=== PATIENT | male | born 1985 | race Caucasian/White ===

== ENCOUNTER 2019-06-13 16:03 | Emergency (ER) | payer SELFPAY ==
--- NOTE | 2019-06-13 16:32 | PHYS DOC ---
Past History Past Medical History: Seizure, Other Past Surgical History: No Surgical History Alcohol Use: Heavy Drug Use: None Adult General Chief Complaint Chief Complaint: ALTERED MENTAL STATUS HPI HPI Patient is a 34-year-old male brought in by EMS due to altered mental status. 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 Patient admits to drinking but will not state how much. Patient has a history of seizure disorder and is on Depakote and ZONDESAMIDE for seizures. History is limited from the patient due to his decreased mental status. EMS reports his blood sugar was in the 100s. Review of Systems Review of Systems Unable to obtain from patient due to altered mental status All other systems were reviewed and found to be within normal limits, except as documented in this note. Allergies Allergies Allergies Coded Allergies Type Severity Reaction Last Updated Verified No Known Drug Allergies 06/13/19 No Physical Exam Physical Exam Constitutional: Well developed, well nourished, no acute distress, non-toxic appearance. [] HENT: Normocephalic, atraumatic, bilateral external ears normal, oropharynx moist, no oral exudates, nose normal. [] Eyes: PERRLA, EOMI, conjunctiva normal, no discharge. [] Neck: Normal range of motion, no tenderness, supple, no stridor. [] Cardiovascular:Heart rate regular rhythm, no murmur [] Lungs & Thorax: Bilateral breath sounds clear to auscultation [] Abdomen: Bowel sounds normal, soft, no tenderness, no masses, no pulsatile masses. [] Skin: Warm, dry, no erythema, no rash. [] Back: No tenderness, no CVA tenderness. [] Extremities: No tenderness, no cyanosis, no clubbing, ROM intact, no edema. [] Neurologic: GCS12 E3 V4 M5, moves all 4 extremities, somnolent, no focal deficits noted. [] Psychologic: Somnolent[] Current Patient Data Vital Signs Vital Signs Date Time Temp Pulse Resp B/P (MAP) Pulse Ox O2 Delivery O2 Flow Rate FiO2 06/13/19 16:07 98.3 98 20 96 EKG EKG EKG shows a sinus rhythm at 70 bpm, normal axis, QTC of 426 ms, no ST elevation. Interpreted by me at 1642.[] Radiology/Procedures Radiology/Procedures PROCEDURE: PORTABLE CHEST 1V Single AP view of the chest. Comparison: None. Indication: Altered mental status Findings: The heart is not enlarged. There is no pneumothorax or effusion. No air space or interstitial disease. Impression: 1. No acute cardiopulmonary process. PROCEDURE: CT HEAD WO CONTRAST CT HEAD WO CONTRAST History: Altered mental status. Comparison: None. Technique: Noncontrast CT imaging was performed of the head. Exposure: One or more of the following individualized dose reduction techniques were utilized for this examination: 1. Automated exposure control 2. Adjustment of the mA and/or kV according to patient size 3. Use of iterative reconstruction technique. Findings: Tiny left frontal convexity subdural collection measures 0.7 cm in maximal dimension. No significant mass effect. No hydrocephalus. No additional intracranial hemorrhage. Brain parenchymal volume loss advanced for age. Postoperative changes within the calvarium. Imaged orbits are unremarkable. Minimal right sphenoid sinus mucosal thickening. Mastoid air cells are clear. No acute calvarial fracture. Impression: 1. Tiny left cerebral convexity subdural hematoma subacute appearing. 2. Brain parenchymal volume loss advanced for age.[] Course & Med Decision Making Course & Med Decision Making Pertinent Labs and Imaging studies reviewed. (See chart for details) ED course: Patient arrived, was placed in bed, and tolerated exam well. He was transported to and from [place] after ascertaining that he could protect his airway. There were no complications with transported to radiology. After the return of the imaging findings and lab findings, IV fluids were started. Consultation was made initially with Dr. An with neurosurgery at [place] who graciously accepted. On discussion with family, patient has had previous care provided at and they request the patient be transferred to . Dr. Small accepted at . Medical decision making: Patient with what appears to be a subacute subdural without any significant mass effect. Patient needs higher level of care than can be provided at [facility]. Patient is also alcohol intoxicated. He also has a subtherapeutic valproate level. There has been no seizure activity in the emergency department[] Dragon Disclaimer Dragon Disclaimer This electronic medical record was generated, in whole or in part, using a voice recognition dictation system. Departure Departure: Impression: Primary Impression: Altered mental status Additional Impressions: Alcohol intoxication Subdural bleeding Disposition: 05 TRANSFER OTHER Condition: IMPROVED Referrals: PCP,NO (PCP) Problem Qualifiers Primary Impression: Altered mental status Altered mental status type: coma Coma depth: Clayton coma 9-12 Coma timing: at arrival to emergency department Qualified Codes: R40.2422 - Clayton coma scale score 9-12, at arrival to emergency department Additional Impressions: Alcohol intoxication Complication of substance-induced condition: with unspecified complication Qualified Codes: F10.929 - Alcohol use, unspecified with intoxication, unspecified JHONNY HERNANDEZ DO Jun 13, 2019 16:32
[2019-06-13 17:09] LABS: BASO % 1 % (0-3); EOS % 1 % (0-3); HEMATOCRIT 40.8 % (39.0-53.0); HEMOGLOBIN 13.7 g/dL (13.0-17.5); LYMPH % 31 % (24-48); MEAN CORPUSCULAR HEMOGLOBIN 29 pg (25-35); MEAN CORPUSCULAR HGB CONC 33 g/dL (31-37); MEAN CORPUSCULAR VOLUME 86 fL (79-100); MONO # 0.5 x10^3/uL (0.0-1.1); MONO % 15 % (0-9); NEUT # 1.7 x10^3uL (1.8-7.7); NEUT % 52 % (31-73); PLATELET COUNT 199 x10^3/uL (140-400); RED BLOOD COUNT 4.73 x10^6/uL (4.30-5.70); RED CELL DISTRIBUTION WIDTH 21.8 % (11.5-14.5); WHITE BLOOD COUNT 3.2 x10^3/uL (4.0-11.0)
--- NOTE | 2019-06-13 17:11 | RAD ---
Single AP view of the chest. Comparison: None. Indication: Altered mental status Findings: The heart is not enlarged. There is no pneumothorax or effusion. No air space or interstitial disease. Impression: 1. No acute cardiopulmonary process. Electronically signed by: Bill Rice MD (06/13/2019 5:08 PM) [id number]
[2019-06-13 17:14] LABS: ALBUMIN 3.9 g/dL (3.4-5.0); ALK PHOS 55 U/L (46-116); ALT (SGPT) 245 U/L (16-63); ANION GAP 15 (6-14); AST (SGOT) 192 U/L (15-37); BLOOD UREA NITROGEN 17 mg/dL (8-26); BUN/CREATININE RATIO 14 (6-20); CALCIUM 8.3 mg/dL (8.5-10.1); CARBON DIOXIDE 22 mmol/L (21-32); CHLORIDE 103 mmol/L (98-107); CREATININE 1.2 mg/dL (0.7-1.3); GFR 68.5; GLUCOSE 90 mg/dL (70-99); MAGNESIUM 2.2 mg/dL (1.8-2.4); POTASSIUM 4.7 mmol/L (3.5-5.1); SODIUM 140 mmol/L (136-145); TOTAL BILIRUBIN 0.3 mg/dL (0.2-1.0); TOTAL PROTEIN 7.8 g/dL (6.4-8.2); VAL ACID 19 mcg/mL (50-100)
[2019-06-13 17:19] LABS: SALIC 1.3 mg/dL (2.8-20.0)
--- NOTE | 2019-06-13 17:19 | RAD ---
CT HEAD WO CONTRAST History: Altered mental status. Comparison: None. Technique: Noncontrast CT imaging was performed of the head. Exposure: One or more of the following individualized dose reduction techniques were utilized for this examination: 1. Automated exposure control 2. Adjustment of the mA and/or kV according to patient size 3. Use of iterative reconstruction technique. Findings: Tiny left frontal convexity subdural collection measures 0.7 cm in maximal dimension. No significant mass effect. No hydrocephalus. No additional intracranial hemorrhage. Brain parenchymal volume loss advanced for age. Postoperative changes within the calvarium. Imaged orbits are unremarkable. Minimal right sphenoid sinus mucosal thickening. Mastoid air cells are clear. No acute calvarial fracture. Impression: 1. Tiny left cerebral convexity subdural hematoma subacute appearing. 2. Brain parenchymal volume loss advanced for age. FOR INTERNAL CODING PURPOSES Critical result: Findings discussed with JHONNY HERNANDEZ at 06/13/2019 5:16 PM. RESULT CODE: (C) Electronically signed by: Dima Becerra DO (06/13/2019 5:16 PM) [id number]
[2019-06-13 17:20] LABS: ACETAMIN < 2.0 mcg/mL (10-30); ETHANOL 423 mg/dL (0-10)
[2019-06-13] MEDS ORDERED: IV NORMAL SALINE 1,000ML 1,000 ML IV ONE (17:30)
[2019-06-13 17:55] LABS: ANISOCYTOSIS MOD; PLT ESTIMATE ADEQUATE (ADEQUATE); TARGET CELLS OCC; TEAR DROP CELLS OCC
[2019-06-13 17:56] LABS: SCHISTOCYTES OCC
[2019-06-13] MEDS ORDERED: MVI, ADULT NO.4 WITH VIT K 10 ML, FOLIC ACID SYRINGE for ER 1 MG, THIAMINE INJ 100 MG i... IV ONE ×4 (18:00)
[2019-06-13 18:39] LABS: BILIRUBIN,URINE NEG (NEG); CLARITY,URINE HAZY; COLOR,URINE YELLOW; GLUCOSE,URINE NEG (NEG)
[2019-06-13 18:40] LABS: NITRITE,URINE NEG (NEG); UROBILINOGEN,URINE 0.2 mg/dL (0.2 mg/dL)
[2019-06-13 18:46] LABS: BARBITURATES NEG (NEG); BENZODIAZEPINES NEG (NEG); CANNABINOIDS NEG (NEG); COCAINE NEG (NEG); METHADONE NEG (NEG); OPIATES NEG (NEG); PHENCYCLIDINE NEG (NEG)
[2019-06-13 18:49] LABS: BACTERIA,URINE FEW /HPF (0-FEW); HYALINE CASTS, URINE OCC /HPF
[2019-06-13 18:51] LABS: AMPHETAMINE/METHAMPHETAMINE NEG (NEG)
[2019-06-13 18:59] VITALS: BP 131/65
--- NOTE | 2019-06-14 17:15 | EKG ---
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
== END 2019-06-13 20:40 | disposition short-term general hospital (02) ==
LOC: ER 16:03
DX: R41.82 Altered mental status, unspecified (principal); F10.229 Alcohol dependence with intoxication, unspecified; I62.00 Nontraumatic subdural hemorrhage, unspecified; G40.909 Epilepsy, unspecified, not intractable, without status epilepticus; Y90.8 Blood alcohol level of 240 mg/100 ml or more
CPT/HCPCS: 36415; 70450; 71045; 80053; 80164; 80307; 80329; 81001; 83605; 83735; 83880; 84484; 85025; 85610; 85730; 87040; 87086; 93005; 96361; 96365; 96366; 99285; G0480; J7120; 82003; J7030

== ENCOUNTER 2019-07-10 15:06 | Emergency (ER) | payer SELFPAY ==
[~2019-07-10] VITALS: Ht 180.3 cm; Wt 85.7 kg
--- NOTE | 2019-07-10 15:26 | PHYS DOC ---
Past History Past Medical History: Depression, Seizure, Other Additional Past Medical Histor: PTSD Past Surgical History: No Surgical History Alcohol Use: Heavy Drug Use: None Adult General Chief Complaint Chief Complaint: NAUSEA/VOMITING/DIARRHEA HPI HPI Patient is a 34-year-old male presents with nausea and vomiting since yesterday. He has been unable to hold any oral intake down. No blood in the emesis. No diarrhea. Upper abdominal cramping. Patient is a heavy drinker but stopped drinking yesterday at approximately 8 AM. No previous history of withdrawal se izures. He does have a baseline seizure history and hasn't all to hold down any of his medicines today. No headache. Any oral intake makes the symptoms worse. No recent travel. No fevers.[] Review of Systems Review of Systems Constitutional: Denies fever or chills [] Eyes: Denies change in visual acuity, redness, or eye pain [] HENT: Denies nasal congestion or sore throat [] Respiratory: Denies cough or shortness of breath [] Cardiovascular: No chest pain or palpitations[] GI: See history of present illness[] : Denies dysuria or hematuria [] Musculoskeletal: Denies back pain or joint pain [] Integument: Denies rash or skin lesions [] Neurologic: Denies headache, focal weakness or sensory changes [] Endocrine: Denies polyuria or polydipsia [] All other systems were reviewed and found to be within normal limits, except as documented in this note. Allergies Allergies Allergies Coded Allergies Type Severity Reaction Last Updated Verified No Known Drug Allergies 06/13/19 No Physical Exam Physical Exam Constitutional: Well developed, well nourished, no acute distress, non-toxic appearance. [] HENT: Normocephalic, atraumatic, bilateral external ears normal, oropharynx slightly dry, no oral exudates, nose normal. [] Eyes: PERRLA, EOMI, conjunctiva normal, no discharge. [] Neck: Normal range of motion, no tenderness, supple, no stridor. [] Cardiovascular:Heart rate regular rhythm, no murmur [] Lungs & Thorax: Bilateral breath sounds clear to auscultation [] Abdomen: Bowel sounds normal, soft, diffuse upper abdominal tenderness, no rebound, no guarding, no rigidity, no masses, no pulsatile masses. [] Skin: Warm, dry, no erythema, no rash. [] Back: No tenderness, no CVA tenderness. [] Extremities: No tenderness, no cyanosis, no clubbing, ROM intact, no edema. [] Neurologic: Alert and oriented X 3, normal motor function, normal sensory function, no focal deficits noted. [] Psychologic: Affect normal, judgement normal, mood normal. [] EKG EKG EKG shows a sinus rhythm at 99 bpm, normal axis, no ST elevations, QTC of 449 ms, interpreted by me at 1511.[] Radiology/Procedures Radiology/Procedures [] Course & Med Decision Making Course & Med Decision Making Pertinent Labs and Imaging studies reviewed. (See chart for details) ED course: Patient arrived, was placed in bed, and tolerated exam well. IV access was established and laboratory testing was obtained. IV fluids and antiemetics were administered. After the antiemetics had a chance to work, patient was given ice chips which he was tolerating. He was oral intake tolerant while in the emergency department. No diarrhea. Discussed findings and plan with patient. He was discharged in improved condition with all questions answered. Medical decision making: Patient with history of alcohol use/abuse whose last drink was yesterday. There is no evidence of previous alcohol withdrawal seizures. Patient is not suicidal or homicidal. Patient does not have oral intake intolerance. No significant electrolyte abnormality. Will help patient in the short-term with his alcohol withdrawal, along with treating the nausea and vomiting and abdominal discomfort. He will need longer term alcohol detox which can be provided by the [place] system. Uncertain as to why the patient was diverted from the [facility] since he was coming in by EMS and according to the status board the [facility] was open.[] Dragon Disclaimer Dragon Disclaimer This electronic medical record was generated, in whole or in part, using a voice recognition dictation system. Departure Departure: Impression: Primary Impression: Nausea and vomiting Additional Impression: Alcohol withdrawal Disposition: 01 HOME, SELF-CARE Condition: IMPROVED Referrals: IRIS GORMAN (PCP) Patient Instructions: Alcohol Withdrawal, Nausea and Vomiting Additional Instructions: Follow-up with your regular doctor in 1 day.Drink plenty of fluids, frequent small sips. No fatty foods, no milk, and no pepper for the next 48 hours. For the next 48 hours eat a diet rich in carbohydrates with foods such as bananas, rice, applesauce, and toast. Return to the ER if unable to tolerate liquids, blood in your emesis, or any other concerns. Scripts Chlordiazepoxide Hcl (CHLORDIAZEPOXIDE HCL) 25 Mg Capsule 25 MG PO as directed for alcohol withdrawal, #54 CAP 2 tablets q4 hours on days 1 and 2, 2 tablets q6 hours on days 3 and 4, 1 tablet q6 hours days 5 and 6, 1 tablet q8 hours days 7 and 8 Prov: JHONNY HERNANDEZ DO 07/10/19 Hyoscyamine Sulfate (LEVSIN) 0.125 Mg Tablet 0.125 MG PO QID for abdominal pain/cramping, #30 TAB Prov: JHONNY HERNANDZE DO 07/10/19 Ondansetron Hcl (ZOFRAN) 4 Mg Tablet 1-2 TAB PO Q6HRS for nausea or vomiting, #30 TAB Prov: JHONNY HERNANDEZ DO 07/10/19 Problem Qualifiers Primary Impression: Nausea and vomiting Vomiting type: unspecified Vomiting Intractability: non-intractable Qualified Codes: R11.2 - Nausea with vomiting, unspecified Additional Impression: Alcohol withdrawal Complication of substance-induced condition: with unspecified complication Qualified Codes: F10.239 - Alcohol dependence with withdrawal, unspecified JHONNY HERNANDEZ DO Jul 10, 2019 15:26
--- NOTE | 2019-07-10 15:44 | EKG ---
[address] [address] Test Date: 2019-07-10 Test Time: 15:09:40 Pat Name: TYREL GOMEZ Department: Room: Gender: M Ambulatory Care Nurse: TYLOR : 1985 Requested By: JHONNY HERNANDEZ Order Number: [id number] Reading MD: Measurements Intervals [place] Rate: 99 P: -30 SD: 116 QRS: 38 QRSD: 102 T: 41 QT: 346 QTc: 449 Interpretive Statements SINUS RHYTHM NO SPECIFIC ECG ABNORMALITIES RI6.01 No previous ECG available for comparison
[2019-07-10] MEDS ORDERED: ONDANSETRON PF 4 MG/2 ML VIAL. IV ONE (15:45)
[2019-07-10 15:47] LABS: BASO % 1 % (0-3); EOS % 0 % (0-3); HEMATOCRIT 37.2 % (39.0-53.0); HEMOGLOBIN 12.2 g/dL (13.0-17.5); LYMPH # 0.4 x10^3/uL (1.0-4.8); LYMPH % 8 % (24-48); MEAN CORPUSCULAR HEMOGLOBIN 29 pg (25-35); MEAN CORPUSCULAR HGB CONC 33 g/dL (31-37); MEAN CORPUSCULAR VOLUME 87 fL (79-100); MONO # 0.4 x10^3/uL (0.0-1.1); MONO % 8 % (0-9); NEUT # 4.1 x10^3uL (1.8-7.7); NEUT % 84 % (31-73); PLATELET COUNT 107 x10^3/uL (140-400); RED BLOOD COUNT 4.26 x10^6/uL (4.30-5.70); RED CELL DISTRIBUTION WIDTH 21.8 % (11.5-14.5); WHITE BLOOD COUNT 4.9 x10^3/uL (4.0-11.0)
[2019-07-10] MEDS ORDERED: MVI, ADULT NO.4 WITH VIT K 10 ML, FOLIC ACID SYRINGE for ER 1 MG, THIAMINE INJ 100 MG i... IV ONE ×4 (16:00)
[2019-07-10 16:20] LABS: ALBUMIN 4.1 g/dL (3.4-5.0); ALBUMIN/GLOBULIN RATIO 1.1 (1.0-1.7); ALK PHOS 58 U/L (46-116); ALT (SGPT) 188 U/L (16-63); ANION GAP 23 (6-14); AST (SGOT) 163 U/L (15-37); BLOOD UREA NITROGEN 13 mg/dL (8-26); BUN/CREATININE RATIO 13 (6-20); CALCIUM 9.3 mg/dL (8.5-10.1); CARBON DIOXIDE 19 mmol/L (21-32); CHLORIDE 96 mmol/L (98-107); GFR 84.5; GLUCOSE 72 mg/dL (70-99); LIPASE 82 U/L (73-393); POTASSIUM 3.5 mmol/L (3.5-5.1); SODIUM 138 mmol/L (136-145); TOTAL BILIRUBIN 0.9 mg/dL (0.2-1.0); VAL ACID 53 mcg/mL (50-100)
[2019-07-10 16:51] LABS: BARBITURATES NEG (NEG); BENZODIAZEPINES NEG (NEG); CANNABINOIDS NEG (NEG); COCAINE NEG (NEG); METHADONE NEG (NEG); OPIATES NEG (NEG); PHENCYCLIDINE NEG (NEG)
[2019-07-10 16:55] LABS: AMPHETAMINE/METHAMPHETAMINE NEG (NEG)
[2019-07-10 16:57] LABS: CLARITY,URINE CLEAR; COLOR,URINE AMBER
[2019-07-10 16:58] LABS: BACTERIA,URINE 0 /HPF (0-FEW); BILIRUBIN,URINE MOD (NEG); GLUCOSE,URINE NEG (NEG); NITRITE,URINE NEG (NEG); SQUAMOUS EPITHELIAL CELL,UR OCC /LPF; UROBILINOGEN,URINE 1 mg/dL (0.2 mg/dL)
[2019-07-10] MEDS ORDERED: ONDA4TAB7 PO (17:36)
[2019-07-10] MEDS ORDERED: HYOS0.1264 PO (17:36)
[2019-07-10] MEDS ORDERED: CHLO25CA9 PO (17:36)
[2019-07-10] MEDS ORDERED: LORazepam 1 MG TABLET PO ONE (17:45)
[2019-07-10 17:55] VITALS: BP 143/99
[2019-07-10 21:19] LABS: ANISOCYTOSIS SLIGHT; PLT ESTIMATE DECREASED (ADEQUATE); POLYCHROMASIA SLIGHT
== END 2019-07-10 17:55 | disposition home or self-care (01) ==
LOC: ER 15:06
DX: F10.239 Alcohol dependence with withdrawal, unspecified (principal); Y90.0 Blood alcohol level of less than 20 mg/100 ml; R11.2 Nausea with vomiting, unspecified
CPT/HCPCS: 36415; 80053; 80164; 80307; 81001; 83690; 83735; 85025; 93005; 96365; 96366; 96375; 99285; G0480; J2405; J7030